=== PATIENT | male | born 1985 | race Caucasian/White ===

== ENCOUNTER 2020-01-29 16:40 | Emergency (ER) | payer MEDICAID, OTHER ==
[~2020-01-29] VITALS: Ht 175.3 cm; Wt 99.8 kg
[~2020-01-29 16:40] MED LIST: ESK300 PO; LURA40TA PO; SERT50TA PO; TRAZ-307 PO
[2020-01-29 16:49] VITALS: BP 129/63
--- NOTE | 2020-01-29 16:54 | NUR ---
WAIT At lobby.
--- NOTE | 2020-01-29 17:55 | NUR ---
34/M presents to ED with c/o rash to left ankle x1 week. ED with complaint of rash over left ankle x1 week. Denies any fever, chills. Complains of itching and redness.
[2020-01-29 18:02] VITALS: BP 129/63
--- NOTE | 2020-01-29 18:02 | NUR ---
Patient discharged with v/s stable. Written and verbal after care instructions given and explained. Patient alert, oriented and verbalized understanding of instructions. Ambulatory with steady gait. All questions addressed prior to discharge. ID band removed. Patient advised to follow up with PMD. Rx of Keflex 500mg given. Patient educated on indication of medication including possible reaction and side effects. Opportunity to ask questions provided and answered.
== END 2020-01-29 18:02 | disposition home or self-care (01) ==
LOC: MED 16:40
DX: S90.512A Abrasion, left ankle, initial encounter (principal); L03.116 Cellulitis of left lower limb; Z79.899 Other long term (current) drug therapy; X58.XXXA Exposure to other specified factors, initial encounter; Y93.89 Activity, other specified; Y92.89 Other specified places as the place of occurrence of the external cause; Y99.8 Other external cause status
CPT/HCPCS: 99283